=== PATIENT | female | born 1995 | race American Indian/Alaskan Native ===

== ENCOUNTER 2018-03-29 02:10 | Emergency (ER) | payer MEDICAID, OTHER ==
[2018-03-29] MEDS ORDERED: PERCOCET 5/325 PO STA (03:35)
[2018-03-29] MEDS ORDERED: CLEOCIN IM ONE (03:35)
--- NOTE | 2018-03-29 03:42 | Emergency Department Report ---
- General Chief complaint: Extremity Injury, Lower Stated complaint: LEFT LEG INJURY Time Seen by Provider: 03/29/18 03:32 Source: patient Mode of arrival: Wheelchair Limitations: No Limitations - History of Present Illness Initial comments: 23-year-old [place] female to emergency Department complaining of left knee pain. States that she hit her left knee on a car lot, causing damage to the skin over her knee, which subsequently began to progress to the right knee swelling and redness but no discharge MD complaint: discoloration -: days(s) (5) Tetanus Up to Date: yes Location: [facility] Severity: mild Quality: dull (throbbing pain) Consistency: constant Improves with: none Worsens with: none Context: none Associated symptoms: denies other symptoms Treatments Prior to Arrival: none - Related Data Previous Rx's Medication Instructions Recorded Last Taken Type Clindamycin [Clindamycin CAP] 300 mg PO Q6H #28 capsule 03/29/18 Unknown Rx Ketorolac [Toradol] 10 mg PO Q6H PRN #15 tablet 03/29/18 Unknown Rx Allergies Allergy/AdvReac Type Severity Reaction Status Date / Time Penicillins Allergy Unknown Verified 03/29/18 02:22 Abscess Boil HPI - HPI Chief Complaint: Extremity Injury, Lower Stated Complaint: LEFT LEG INJURY Time Seen by Provider: 03/29/18 03:32 Home Medications: Previous Rx's Medication Instructions Recorded Last Taken Type Clindamycin [Clindamycin CAP] 300 mg PO Q6H #28 capsule 03/29/18 Unknown Rx Ketorolac [Toradol] 10 mg PO Q6H PRN #15 tablet 03/29/18 Unknown Rx Allergies/Adverse Reactions: Allergies Allergy/AdvReac Type Severity Reaction Status Date / Time Penicillins Allergy Unknown Verified 03/29/18 02:22 ED Review of Systems ROS: Stated complaint: LEFT LEG INJURY Other details as noted in HPI Constitutional: denies: chills, fever Eyes: denies: eye pain, eye discharge, vision change ENT: denies: ear pain, throat pain Respiratory: denies: cough, shortness of breath, wheezing Cardiovascular: denies: chest pain, palpitations Endocrine: no symptoms reported Gastrointestinal: denies: abdominal pain, nausea, diarrhea Genitourinary: denies: urgency, dysuria, discharge Musculoskeletal: joint swelling. denies: back pain, arthralgia Skin: denies: rash, lesions Neurological: denies: headache, weakness, paresthesias Psychiatric: denies: anxiety, depression Hematological/Lymphatic: denies: easy bleeding, easy bruising ED Past Medical Hx - Past Medical History Previous Medical History?: No - Surgical History Past Surgical History?: No - Social History Smoking Status: Never Smoker Substance Use Type: Alcohol - Medications Home Medications: Home Medications Medication Instructions Recorded Confirmed Last Taken Type Clindamycin [Clindamycin CAP] 300 mg PO Q6H #28 capsule 03/29/18 Unknown Rx Ketorolac [Toradol] 10 mg PO Q6H PRN #15 tablet 03/29/18 Unknown Rx ED Physical Exam - General Limitations: No Limitations General appearance: alert, in no apparent distress - Head Head exam: Present: atraumatic, normocephalic - Eye Eye exam: Present: normal appearance, PERRL, EOMI Pupils: Present: normal accommodation - ENT ENT exam: Present: normal exam, normal orophraynx, mucous membranes moist - Neck Neck exam: Present: normal inspection, full ROM - Respiratory Respiratory exam: Present: normal lung sounds bilaterally. Absent: respiratory distress, wheezes, rales - Cardiovascular Cardiovascular Exam: Present: regular rate, normal rhythm. Absent: systolic murmur, diastolic murmur, rubs, gallop - GI/Abdominal GI/Abdominal exam: Present: soft, normal bowel sounds - Extremities Exam Extremities exam: Present: normal inspection, full ROM, tenderness, normal capillary refill, joint swelling, other (cellulitis to the left knee with a small papule. No active abscess appreciated with expression. Possible small joint effusion noted. No subcutaneous emphysema was appreciated. Pulses 2+ to the posterior tibialis and dorsalis pedis. No popliteal masses appreciated). Absent: calf tenderness - Back Exam Back exam: Present: normal inspection. Absent: muscle spasm, paraspinal tenderness - Neurological Exam Neurological exam: Present: alert, oriented X3 - Psychiatric Psychiatric exam: Present: normal affect, normal mood - Skin Skin exam: Present: warm, dry, intact, normal color. Absent: rash ED Course Vital Signs 03/29/18 03/29/18 02:13 02:16 Temperature 97.9 F 97.9 F Pulse Rate 100 H 100 H Respiratory 18 16 Rate Blood Pressure 93/61 93/61 O2 Sat by Pulse 99 99 Oximetry Critical care attestation.: If time is entered above; I have spent that time in minutes in the direct care of this critically ill patient, excluding procedure time. ED Disposition Clinical Impression: Cellulitis of left knee Disposition: TO HOME OR SELFCARE Is pt being admited?: No Does the pt Need Aspirin: No Condition: Stable Instructions: Cellulitis (ED) Referrals: [facility] [Provider Group] - 3-5 Days MEGHAN SOLIS MD [Staff Physician] - 3-5 Days
[2018-03-29 04:53] VITALS: BP 124/70
== END 2018-03-29 05:30 | disposition home or self-care (01) ==
LOC: ED 02:10
DX: L03.116 Cellulitis of left lower limb (principal); Z88.0 Allergy status to penicillin
CPT/HCPCS: 96372; 99283